=== PATIENT | male | born 1945 | race Caucasian/White ===

== ENCOUNTER → 2019-05-01 | Outpatient (CLI) | payer MEDICARE ==
--- NOTE | 2019-05-01 09:48 | CT ---
EXAMINATION TYPE: CT abdomen pelvis wo con DATE OF EXAM: 05/01/2019 COMPARISON: None HISTORY: 73-year-old male Microhematuria CT DLP: 981 mGycm. Automated exposure control for dose reduction was used. TECHNIQUE: Contiguous axial scanning of the abdomen and pelvis without IV contrast. Coronal and sagit jose reconstructions performed. FINDINGS: Three-vessel coronary artery calcifications are present. Heart normal size. No pericardial effusion. Lung bases clear without pleural effusion. Small hiatal hernia. Couple hypodensities within the liver measuring up to 1.2 cm likely benign cysts. Possible vague unde rlying 4.0 cm lesion left hepatic dome, refer to axial image 19. Lack of IV contrast diminishes sensi tivity. Gallbladder, adrenal glands, and pancreas show no gross abnormal body by noncontrast CT. Small 1.1 cm cortical hypodensity medial upper pole right kidney too small for accurate CT characteri zation, probable cyst. Suspect parapelvic cysts within the left kidney measuring 2.1 cm and 1.3 cm. No nephrolithiasis or hydronephrosis seen. The spleen is borderline enlarged at 13.6 cm measured on coronal series. There is a 1.7 cm soft tissue nodule at the left upper quadrant, axial image 22. This seems to be sep arate from the splenic artery. A small gastric fundal diverticulum is suspected. This can be reassess ed at follow-up. Some prominent fluid-filled small bowel loops in the left side of the abdomen likely transient. A couple borderline sized lymph nodes within the right lower quadrant and mid lower mesentery measuri ng up to 7 mm are nonspecific. No secondary findings of acute appendicitis. Mild to moderate scattered stool. Severe diverticulosis mid to distal sigmoid colon. No pericolonic i nflammatory change. Scattered mild atherosclerotic calcifications infrarenal abdominal aorta and iliac arteries. Partial distention of the bladder. Some prominent bilateral inguinal lymph nodes are present. Largest measures 1.9 cm on the right and is mildly enlarged, refer to coronal image 32. A small direct left inguinal hernia containing a short segment small bowel loop and fat. Prostate gland not seen. Bones: Mild degenerative changes at the hips. Degenerative changes right SI joint. Dextroconvex scoli osis with associated moderate degenerative disc disease upper lumbar spine. IMPRESSION: 1. No nephrolithiasis or hydronephrosis. Rounded areas at the left renal sinus measuring 2.1 and 1.3 cm is suspected to represent parapelvic cysts. 2. Indeterminate 1.1 cm cortical lesion medial upper pole right kidney, probable cortical cyst. 3. A 1.7 cm soft tissue nodule left upper quadrant appears separate from the splenic artery. Either a splenule or small gastric fundal diverticulum is suspected. Short interval follow-up recommended suc h as in 3-6 months to reassess. 4. Possible underlying 4.0 cm left hepatic dome lesion subtly apparent on this noncontrast exam. Cons ider liver ultrasound to further evaluate. If the area remains indeterminate, a contrast enhanced CT may be indicated. 5. Extensive mid to distal sigmoid diverticulosis. No evidence for acute diverticulitis. 6. Scattered nonenlarged and borderline sized mesenteric lymph nodes measuring up to 7 mm are nonspec ific, likely reactive/post inflammatory. 7. Prominent bilateral inguinal lymph nodes, largest is mildly enlarged on the right measuring 1.9 cm short axis. Clinical follow-up recommended. If any enlarging lymphadenopathy is noted, the area can be re-imaged or sampled. 8. Prostate gland not seen. Small direct left inguinal hernia. Small hiatal hernia. CAD.
== END | disposition home or self-care (01) ==
LOC: RADCTMAIN 08:50
PROVIDERS: ATTEND Urology
DX: K57.30 Diverticulosis of large intestine without perforation or abscess without bleeding (principal); K40.90 Unilateral inguinal hernia, without obstruction or gangrene, not specified as recurrent; K44.9 Diaphragmatic hernia without obstruction or gangrene; R59.9 Enlarged lymph nodes, unspecified; M79.89 Other specified soft tissue disorders; I25.10 Atherosclerotic heart disease of native coronary artery without angina pectoris
CPT/HCPCS: 74176

== ENCOUNTER → 2020-07-16 | Outpatient (CLI) | payer MEDICARE | END | disposition home or self-care (01) | LOC: LABWHC1 13:29 | PROVIDERS: ATTEND Urology | DX: C61 Malignant neoplasm of prostate (principal) | CPT/HCPCS: 36415; 84153 ==

== ENCOUNTER → 2022-08-04 | Outpatient (CLI) | payer MEDICARE ==
--- NOTE | 2022-08-06 10:02 | PE ---
EXAMINATION TYPE: PET CT fusion skull to thigh DATE OF EXAM: 08/04/2022 CLINICAL INDICATION:Male, 76 years old with history of C91.10; TECHNIQUE: Following the intravenous administration of 12.27 mCi of F-18 FDG, whole body images are performed from the skull base to the midthigh. Images are reviewed on the computer in the coronal, axial, and sagittal planes. Reconstructed rotating images are created on independent workstation and reviewed on the computer. A non-contrast CT is performed in conjunction with the PET scan. Glucose level 98 mg/dL COMPARISON: CT 05/01/2019, PET/CT None, FINDINGS: Mediastinal SUV mean is 2.0. Hepatic parenchyma SUV mean is 2.4. SKULL BASE AND NECK: Right lower neck FDG avid lymph node max SUV 3.1 measuring 12 mm in short axis. CHEST, MEDIASTINUM, AND HILAR REGION: Scattered mediastinal lymphadenopathy which is FDG avid. Exampl es include: * Right high paratracheal 12 mm short axis and max SUV 3.3 * Left low paratracheal conglomerate lymphadenopathy max SUV 4.6. * Right low paratracheal conglomerate lymphadenopathy max SUV 5.6 * Subcarinal conglomerate lymphadenopathy max SUV 4.9. * AP lymph node 25 mm short axis and max SUV 2.9 Evaluation of measurements is limited secondary to lack of IV contrast. ABDOMEN AND PELVIS: No suspicious radiotracer activity. OSSEOUS STRUCTURES: No suspicious radiotracer activity. OTHER CT: Atherosclerosis of the arterial vasculature and coronary arteries. Not is mildly enlarged f or size. Trace right pleural effusion. Trace pericardial effusion. Scattered colonic diverticula. Mul tilevel disc degeneration changes throughout the spine with scoliosis changes. IMPRESSION: Conglomerate lymphadenopathy throughout the mediastinum and right low neck and system with provided h istory of leukemia.
== END | disposition home or self-care (01) ==
LOC: RADPETMAIN 09:48
PROVIDERS: ATTEND Internal Medicine Hematology & Oncology
DX: C91.10 Chronic lymphocytic leukemia of B-cell type not having achieved remission (principal); R59.0 Localized enlarged lymph nodes
CPT/HCPCS: 78815; A9552